=== PATIENT | male | born 1935 | race Hispanic/Latino ===

== ENCOUNTER 2018-04-24 10:05 | Emergency (ER) | payer MEDICARE, OTHER ==
[2018-04-24] MEDS: MECLIZINE 25 MG TABLET PO (11:04)
== END 2018-04-24 11:05 | disposition home or self-care (01) ==
LOC: M ED 10:05
DX: H81.10 Benign paroxysmal vertigo, unspecified ear (principal); I10 Essential (primary) hypertension; E78.5 Hyperlipidemia, unspecified; Z79.82 Long term (current) use of aspirin; Z79.899 Other long term (current) drug therapy
CPT/HCPCS: 99284

== ENCOUNTER 2020-12-28 18:02 | Emergency (ER) | payer MEDICARE, OTHER ==
[~2020-12-28] VITALS: Ht 175.3 cm; Wt 81.4 kg
[~2020-12-28 18:02] MED LIST: ASPI81TA52 PO; CYAN100049 PO; LOSA25TA14 PO; MECL1TAB31 PO; SIMV40TA20 PO
[2020-12-28] MEDS ORDERED: FLUORESCEIN OPHTH 1 MG STRIP OS ONE (19:40)
[2020-12-28] MEDS ORDERED: PROPARACAINE 0.5% OPHTH SOL 15ML OS ONE (19:40)
[2020-12-28] MEDS ORDERED: ERYTHROMYCIN OPHTH OINT OS ONE (20:35)
[2020-12-28] MEDS ORDERED: ERYT5OIN25 OS (20:35)
[2020-12-28 20:52] VITALS: BP 162/79
== END 2020-12-28 21:18 | disposition home or self-care (01) ==
LOC: M ED 18:02
DX: S05.02XA Injury of conjunctiva and corneal abrasion without foreign body, left eye, initial encounter (principal); X58.XXXA Exposure to other specified factors, initial encounter; Y92.017 Garden or yard in single-family (private) house as the place of occurrence of the external cause; Y93.H2 Activity, gardening and landscaping; Y99.9 Unspecified external cause status; Z79.82 Long term (current) use of aspirin; Z79.899 Other long term (current) drug therapy

== ENCOUNTER → 2021-01-08 | Outpatient (CLI) | payer MEDICARE, OTHER ==
[~2021-01-08] MED LIST changes: +ERYT5OIN25 OS
--- NOTE | 2021-01-08 17:43 | REP ---
INDICATION: LBP. History of colon carcinoma. Rule out stenosis. COMPARISON: None. TECHNIQUE: Sagittal and axial T1 and T2-weighted scans are acquired in the usual fashion with and without fat saturation. Sequences include spin echo, turbo spin-echo, and STIR imaging sequences. FINDINGS: There is straightening of the normal lumbar lordosis. Lumbar vertebral body heights are preserved. There are some reactive marrow changes on either side of the degenerated L4-5 disc. Cortical and medullary bone signal intensity are otherwise normal. The tip of the conus medullaris is normal in position and appearance at T12. There are multiple bilateral renal cysts including a cyst measuring approximately 8 cm incompletely imaged in the right kidney. No other extra renal abnormality is observed. There is a moderate amount of is centrally circumferential intraspinal epidural fat consistent with epidural lipomatosis. This is most pronounced dorsally at L2-3 L3-4 but the circumferentially at L4 and L5 and S1. Axial and sagittal images taken at L1-2 demonstrate minimal diffuse disc bulging. This indents the ventral margin of the thecal sac. No disc protrusion is seen. No spinal stenosis is seen. At L2-3, there is degenerative disc narrowing and decreased signal intensity. Diffuse disc bulging is seen. There is mild central canal stenosis due to diffuse disc bulging, minimal ligamentum flavum and facet hypertrophy, and epidural fat. The midline AP dimension of the thecal sac at L2-3 is 7 mm. No neural foraminal narrowing is seen. At L3-4, there is degenerative disc narrowing and desiccation. There is diffuse bulging of the disc margin. There is moderate central canal stenosis due to diffuse disc bulging in combination with nearly circumferential epidural fat. There is ligamentum flavum and facet hypertrophy as well. The AP diameter of the thecal sac at L3-4 in the midline is 4.7 mm. Foraminal disc bulging is observed bilaterally. There is mild left-sided neural foraminal narrowing due to this in combination with facet hypertrophy. At L4-5, there is a vacuum phenomena in the degenerated narrowed disc. Reactive marrow changes are seen on either side of the 4 5 disc. There is a broad-based right paracentral focal disc protrusion at L4-5 compressing the thecal sac. There is severe central canal stenosis due to this in combination with moderate ligamentum flavum and facet hypertrophy and developmentally short pedicles. The midline AP dimension of the thecal sac at L4-5 is 4 mm. There is mild bilateral neural foraminal narrowing at L4-5 due to facet hypertrophy and disc bulging. At L5-S1, there is osteoarthritic facet hypertrophy bilaterally and diffuse disc bulging. Mild bilateral neural foraminal narrowing is present due to facet hypertrophy and some degree of disc bulging period no central canal stenosis is seen. IMPRESSION: Multilevel degenerative disc disease. There is some severe central canal stenosis at L4-5 and moderate central canal stenosis at L3-4. Mild central canal stenosis is noted at L2-3. Thecal sac narrowing at these levels due to a combination of diffuse disc bulging, ligamentum flavum and facet hypertrophy, and epidural fat. A broad-based right paracentral focal disc protrusion is felt to be present at L4-5. Bilateral neural foraminal narrowing as above <Electronically signed by Janes Triana > 01/08/21 [id number]
== END ==
LOC: M PLARAD 14:41
PROVIDERS: ATTEND Orthopaedic Surgery
DX: M54.5 Low back pain (principal)

== ENCOUNTER → 2021-10-31 | Outpatient (CLI) | payer MEDICARE, OTHER ==
[~2021-10-31] MED LIST changes: +LOSA25TA13 PO; -LOSA25TA14 PO
== END ==
LOC: M RAD 09:37
PROVIDERS: ATTEND Internal Medicine Pulmonary Disease
DX: R91.8 Other nonspecific abnormal finding of lung field (principal); N28.1 Cyst of kidney, acquired; K76.89 Other specified diseases of liver

== ENCOUNTER → 2022-06-26 | Outpatient (CLI) | payer MEDICARE, OTHER ==
[2022-06-26 12:43] LABS: THYROID STIMULATING HORMONE 1.26 uIU/ML (0.358-3.740)
[2022-06-26 18:25] LABS: FOLATE 9.6 NG/ML
== END ==
LOC: M LAB 10:12
PROVIDERS: ATTEND Psychiatry & Neurology Neurology
DX: E53.8 Deficiency of other specified B group vitamins (principal); E03.9 Hypothyroidism, unspecified; R41.3 Other amnesia

== ENCOUNTER → 2022-07-21 | Outpatient (CLI) | payer MEDICARE, OTHER | LOC: M RAD 09:38 | PROVIDERS: ATTEND Psychiatry & Neurology Neurology | DX: S00.85XA Superficial foreign body of other part of head, initial encounter (principal) ==

== ENCOUNTER 2023-04-14 10:13 | Emergency (ER) | payer MEDICARE, OTHER ==
[~2023-04-14] VITALS: Ht 172.7 cm; Wt 80.8 kg
[2023-04-14] MEDS ORDERED: METF500T13 PO (10:22)
[2023-04-14] MEDS ORDERED: MEMA10TA19 PO (10:23)
[2023-04-14] MEDS ORDERED: ACETAMINOPHEN *IV* 1,000 MG in IV 1 EA IV ONE (11:00)
[2023-04-14] MEDS ORDERED: LIDOCAINE 5% (LIDODERM) PATCH TD ONE (11:00)
[2023-04-14 11:25] LABS: BASO # 0.1 10^3/uL (0.0-0.2); BASO % 0.7 % (0.0-1.0); EOS # 0.1 10^3/uL (0.0-0.5); EOS % 1.3 % (0.0-3.0); HEMOGLOBIN 13.6 g/dl (13.5-17.5); LYMPH # 1.2 10^3/uL (1.5-5.0); LYMPH % 16.1 % (24.0-44.0); MEAN CORPUSCULAR HEMOGLOBIN 32.2 pg (27.0-33.0); MEAN CORPUSCULAR VOLUME 94.8 fl (80.0-96.0); MONO # 0.6 10^3/uL (0.0-0.8); MONO % 7.5 % (2.0-8.0); NEUTROPHILS # 5.7 10^3/uL (1.5-8.5); NEUTROPHILS % 74.1 % (36.0-66.0); PLATELET COUNT, AUTOMATED 142 10^3/uL (150-450); RED BLOOD COUNT 4.22 10^6/uL (4.30-6.10); WHITE BLOOD COUNT 7.6 10^3/uL (4.0-10.0)
[2023-04-14] MEDS ORDERED: ISOVUE-370 76% 100ML VIAL As Ordered ONE (12:35)
[2023-04-14] MEDS ORDERED: ASPE4PAD TOP (13:59)
[2023-04-14] MEDS ORDERED: MEDR4PAK PO (13:59)
[2023-04-14] MEDS ORDERED: TRAM50TA2 PO (13:59)
[2023-04-14 14:10] VITALS: BP 150/70; TEMP 97.3; O2SAT 99
== END 2023-04-14 14:12 | disposition home or self-care (01) ==
LOC: M ED 10:13
DX: M51.17 Intervertebral disc disorders with radiculopathy, lumbosacral region (principal); M51.26 Other intervertebral disc displacement, lumbar region; M54.50 Low back pain, unspecified; I10 Essential (primary) hypertension; E78.5 Hyperlipidemia, unspecified; Z85.038 Personal history of other malignant neoplasm of large intestine; Z79.82 Long term (current) use of aspirin; Z79.811 Long term (current) use of aromatase inhibitors; Z79.4 Long term (current) use of insulin; Z79.899 Other long term (current) drug therapy
CPT/HCPCS: 72131; 74177; 80047; 85025; 96374; 99284; J0131; Q9967

== ENCOUNTER 2024-02-16 03:41 | Emergency (ER) | payer MEDICARE, OTHER ==
[~2024-02-16] VITALS: Ht 172.7 cm; Wt 86.6 kg
[~2024-02-16 03:41] MED LIST changes: +AMLO1TAB24 PO; +ASPE4PAD TOP; +ASPE4PAD2 TOP; +ASPI-615 PO; +CIME-49 PO; +ERGO500029 PO; +FLOM0.4C39 PO; +MECL-209 PO; -MECL1TAB31 PO; +MEDR4PAK PO; +MELO7.5T35 PO; +MEMA10TA PO; +METF500T13 PO; +ROSU40TA63 PO; +TIMO0.5S39 OU; +TRAM50TA2 PO; +XALA0.007 OU
[2024-02-16 07:32] VITALS: BP 152/74
[2024-02-16 07:33] VITALS: O2SAT 99
[2024-02-16 07:44] VITALS: TEMP 97.2
== END 2024-02-16 07:45 | disposition home or self-care (01) ==
LOC: M ED 03:41
DX: S46.811A Strain of other muscles, fascia and tendons at shoulder and upper arm level, right arm, initial encounter (principal); M50.30 Other cervical disc degeneration, unspecified cervical region; M25.78 Osteophyte, vertebrae; M19.011 Primary osteoarthritis, right shoulder; M47.892 Other spondylosis, cervical region; I10 Essential (primary) hypertension; J45.909 Unspecified asthma, uncomplicated; K21.9 Gastro-esophageal reflux disease without esophagitis; Z91.018 Allergy to other foods; Z79.82 Long term (current) use of aspirin; Z79.811 Long term (current) use of aromatase inhibitors; Z79.4 Long term (current) use of insulin; Z79.899 Other long term (current) drug therapy; Y92.9 Unspecified place or not applicable; Y93.9 Activity, unspecified; Y99.9 Unspecified external cause status

== ENCOUNTER 2024-07-06 17:55 | Emergency (ER) | payer MEDICARE, OTHER ==
[~2024-07-06] VITALS: Ht 177.8 cm; Wt 85.0 kg
[~2024-07-06 17:55] MED LIST changes: -ROSU40TA63 PO; +ROSU40TA81 PO
[2024-07-06 18:01] VITALS: TEMP 97.5
[2024-07-06] MEDS: LIDOCAINE VISCOUS 2% SOLN 15ML UDC PO ONE (18:30)
[2024-07-06] MEDS: SUCRALFATE SUSP 1GM/10ML UD PO ONE (20:22)
[2024-07-06] MEDS: MAALOX 30 ML SUSP *UDC PO ONE (20:22)
[2024-07-06 23:45] VITALS: BP 154/72; O2SAT 99
== END 2024-07-07 | disposition home or self-care (01) ==
LOC: M ED 17:55
DX: J02.9 Acute pharyngitis, unspecified (principal); E11.9 Type 2 diabetes mellitus without complications; I10 Essential (primary) hypertension; E78.5 Hyperlipidemia, unspecified; F03.90 Unspecified dementia, unspecified severity, without behavioral disturbance, psychotic disturbance, mood disturbance, and anxiety; Z91.09 Other allergy status, other than to drugs and biological substances; Z79.82 Long term (current) use of aspirin; Z79.4 Long term (current) use of insulin; Z79.899 Other long term (current) drug therapy

== ENCOUNTER 2024-10-08 09:15 | Emergency (ER) | payer MEDICARE, OTHER ==
[~2024-10-08] VITALS: Ht 177.8 cm; Wt 85.0 kg
[2024-10-08 10:01] LABS: BASO # 0.1 10^3/uL (0.0-0.2); BASO % 0.4 % (0.0-1.0); EOS # 0.1 10^3/uL (0.0-0.5); EOS % 0.9 % (0.0-3.0); HEMATOCRIT 46.4 % (42.0-52.0); HEMOGLOBIN 15.4 g/dl (13.5-17.5); LYMPH # 1.5 10^3/uL (1.5-5.0); LYMPH % 13.3 % (24.0-44.0); MEAN CORPUSCULAR HEMOGLOBIN 30.6 pg (27.0-33.0); MEAN CORPUSCULAR HGB CONC 33.2 g/dl (32.0-36.5); MEAN CORPUSCULAR VOLUME 92.2 fl (80.0-96.0); MONO # 0.8 10^3/uL (0.0-0.8); MONO % 6.8 % (2.0-8.0); NEUTROPHILS # 8.9 10^3/uL (1.5-8.5); NEUTROPHILS % 78.2 % (36.0-66.0); PLATELET COUNT, AUTOMATED 192 10^3/uL (150-450); RED BLOOD COUNT 5.03 10^6/uL (4.30-6.10); WHITE BLOOD COUNT 11.4 10^3/uL (4.0-10.0)
[2024-10-08 10:13] LABS: KETONE, URINE AUTO RFX NEGATIVE (NEGATIVE); LEUKOCYTE ESTERASE UR AUTO RFX NEGATIVE (NEGATIVE); MUCUS, URINE RFX SMALL (NEGATIVE); NITRITE, URINE AUTO RFX NEGATIVE (NEGATIVE); RBC, URINE AUTO RFX 2 /HPF (0-3); SQUAM EPITHELIAL CELL UR AURFX 0 /HPF (0-6); WBC, URINE AUTO RFX 3 /HPF (0-3)
[2024-10-08 10:26] LABS: CK-MB VALUE MASS 1.3 NG/ML (<3.6)
[2024-10-08 10:29] LABS: ALBUMIN 3.9 G/DL (3.2-5.2); BILIRUBIN,DIRECT 0.2 MG/DL (<0.4); BILIRUBIN,TOTAL 0.5 MG/DL (0.3-1.2); CALCIUM LEVEL 9.9 MG/DL (8.3-10.6); CREATININE FOR GFR 1.22 MG/DL (0.70-1.30); GLOMERULAR FILTRATION RATE 59.7 (>35); MB/CK RELATIVE INDEX 1.83 (< OR =4); TOTAL PROTEIN 7.3 G/DL (5.7-8.2)
[2024-10-08] MEDS ORDERED: ISOVUE-370 76% 100ML VIAL As Ordered ONE (10:30)
[2024-10-08] MEDS: LIDOCAINE 2% 5ML JELLY UROJET TOP ONE (11:15)
[2024-10-08] MEDS: NS (Normal Saline) 0.9% 1,000 ML IV ONE (11:34)
[2024-10-08 12:28] LABS: CK-MB VALUE MASS < 1.0 NG/ML (<3.6)
[2024-10-08 12:40] LABS: CPK CREATINE PHOSPHOKINASE 72 U/L (46-171); MB/CK RELATIVE INDEX 1.38 (< OR =4)
[2024-10-08] MEDS ORDERED: AMLO1TAB24 PO (14:59)
[2024-10-08] MEDS ORDERED: OMEP-173 PO (14:59)
[2024-10-08] MEDS ORDERED: PANT40TA29 PO (14:59)
[2024-10-08] MEDS ORDERED: DULO1CAP4 PO (14:59)
[2024-10-08] MEDS ORDERED: CETI-24 PO (14:59)
[2024-10-08] MEDS ORDERED: SITA50TAB PO (14:59)
[2024-10-08] MEDS ORDERED: HOME MED LIST COMPLETE! XX SCH (15:00)
[2024-10-08] MEDS ORDERED: MAALOX 30 ML SUSP *UDC PO PRN (16:00)
[2024-10-08] MEDS ORDERED: INSULIN LISPRO (NovoLOG) PER UNIT SC SCH (16:05)
[2024-10-08] MEDS ORDERED: DEXTROSE 50% 50ML SYRINGE IV PRN (16:05)
[2024-10-08] MEDS ORDERED: GLUCOSE 4 GM CHEW PO PRN (16:05)
[2024-10-08] MEDS ORDERED: GLUCAGON INJ 1MG VIAL SC PRN (16:05)
[2024-10-08] MEDS ORDERED: PROCHLORPERAZINE 10MG 2ML VIAL IM PRN (16:10)
[2024-10-08] MEDS: METOCLOPRAMIDE INJ 10MG/2ML VIAL IV ONE (16:49)
[2024-10-08] MEDS: INSULIN LISPRO (NovoLOG) PER UNIT SC SCH (18:00)
[2024-10-08] MEDS: PANTOPRAZOLE 40MG VIAL IV SCH (22:10)
[2024-10-09 08:30] LABS: HEMATOCRIT 43.6 % (42.0-52.0); HEMOGLOBIN 14.2 g/dl (13.5-17.5); MEAN CORPUSCULAR HEMOGLOBIN 30.4 pg (27.0-33.0); MEAN CORPUSCULAR HGB CONC 32.6 g/dl (32.0-36.5); MEAN CORPUSCULAR VOLUME 93.4 fl (80.0-96.0); PLATELET COUNT, AUTOMATED 153 10^3/uL (150-450); RED BLOOD COUNT 4.67 10^6/uL (4.30-6.10); WHITE BLOOD COUNT 6.7 10^3/uL (4.0-10.0)
[2024-10-09 08:53] LABS: ALBUMIN 3.6 G/DL (3.2-5.2); ALKALINE PHOSPHATASE 59 U/L (40-129); ALT/SGPT 15 U/L (7.0-40); AST/SGOT 15 U/L (<34); BILIRUBIN,TOTAL 0.5 MG/DL (0.3-1.2); BLOOD UREA NITROGEN 44 MG/DL (9-23); CALCIUM LEVEL 9.2 MG/DL (8.3-10.6); CARBON DIOXIDE LEVEL 26 MMOL/L (20-31); CHLORIDE LEVEL 109 MMOL/L (98-107); CREATININE FOR GFR 1.01 MG/DL (0.70-1.30); GLOMERULAR FILTRATION RATE > 60.0 (>35); GLUCOSE, FASTING 140 MG/DL (74-106); POTASSIUM SERUM 4.6 MMOL/L (3.5-5.1); SODIUM LEVEL 145 MMOL/L (136-145); TOTAL PROTEIN 6.9 G/DL (5.7-8.2)
[2024-10-09] MEDS: ENOXAPARIN 40MG/0.4ML SYRINGE (J1650 PER 10MG) SC SCH (09:00)
[2024-10-09] MEDS ORDERED: ENOXAPARIN 40MG/0.4ML SYRINGE (J1650 PER 10MG) SC SCH (09:00)
[2024-10-09] MEDS ORDERED: REGL5TAB2 PO (14:40)
[2024-10-09] MEDS ORDERED: MYLA41.6 PO (14:44)
[2024-10-09 15:19] VITALS: BP 128/70; TEMP 98.7; O2SAT 68
== END 2024-10-09 15:30 | disposition home or self-care (01) ==
LOC: M ED 09:15 → EDBD 09:15 → M ED INP 09:16
PROVIDERS: ADMIT Student in an Organized Health Care Education/Training Program; ATTEND Student in an Organized Health Care Education/Training Program
DX: R10.9 Unspecified abdominal pain (principal); R11.10 Vomiting, unspecified; R19.7 Diarrhea, unspecified; R06.6 Hiccough; N17.9 Acute kidney failure, unspecified; E11.65 Type 2 diabetes mellitus with hyperglycemia; G30.9 Alzheimer's disease, unspecified; I10 Essential (primary) hypertension; E78.5 Hyperlipidemia, unspecified; N40.0 Benign prostatic hyperplasia without lower urinary tract symptoms; K21.9 Gastro-esophageal reflux disease without esophagitis; Z85.038 Personal history of other malignant neoplasm of large intestine; Z87.442 Personal history of urinary calculi; Z79.84 Long term (current) use of oral hypoglycemic drugs; Z79.82 Long term (current) use of aspirin; Z79.899 Other long term (current) drug therapy; Z91.018 Allergy to other foods
CPT/HCPCS: 36415; 71045; 71275; 74177; 80047; 80048; 80053; 80076; 81001; 82150; 82550; 82553; 83605; 83690; 84484; 85025; 85027; 87040; 93005; 93041; 96372; 96374; 96375; 99285; G0378; J1650; J2470; J2765; Q9967

== ENCOUNTER 2025-05-21 13:52 | Emergency (ER) | payer MEDICARE, OTHER ==
[~2025-05-21] VITALS: Ht 177.8 cm; Wt 78.0 kg
[~2025-05-21 13:52] MED LIST changes: +CETI-24 PO; +DULO1CAP4 PO; -FLOM0.4C39 PO; +MYLA41.6 PO; +OMEP-173 PO; +PANT40TA29 PO; +REGL5TAB2 PO; +SITA50TAB PO; +TAMS-18 PO; -TIMO0.5S39 OU; +TIMO5DRO9 OU
[2025-05-21 14:13] VITALS: TEMP 96.9
[2025-05-21 14:53] LABS: BASO # 0.0 10^3/uL (0.0-0.2); BASO % 0.6 % (0.0-1.0); EOS # 0.1 10^3/uL (0.0-0.5); EOS % 1.5 % (0.0-3.0); LYMPH # 0.9 10^3/uL (1.5-5.0); LYMPH % 13.2 % (24.0-44.0); MONO # 0.5 10^3/uL (0.0-0.8); MONO % 7.9 % (2.0-8.0); NEUTROPHILS # 5.1 10^3/uL (1.5-8.5); NEUTROPHILS % 76.5 % (36.0-66.0); PLATELET COUNT, AUTOMATED 126 10^3/uL (150-450)
[2025-05-21 15:10] LABS: INR 1.1
[2025-05-21 15:14] LABS: ALT/SGPT 21.0 U/L (7.0-40); AST/SGOT 18.0 U/L (<34); CALCIUM LEVEL 8.9 MG/DL (8.3-10.6); CARBON DIOXIDE LEVEL 30.0 MMOL/L (20-31); CHLORIDE LEVEL 104.0 MMOL/L (98-107); CK-MB VALUE MASS 1.6 NG/ML (<3.6); CPK CREATINE PHOSPHOKINASE 49.0 U/L (46-171); CREATININE FOR GFR 1.47 MG/DL (0.70-1.30); GLOMERULAR FILTRATION RATE 45.3 (>35); MB/CK RELATIVE INDEX 3.26 (< OR =4); POTASSIUM SERUM 3.9 MMOL/L (3.5-5.1); SODIUM LEVEL 142.0 MMOL/L (136-145)
[2025-05-21 15:17] LABS: FREE T4 1.16 NG/DL (0.89-1.76)
[2025-05-21 16:36] LABS: KETONE, URINE AUTO RFX NEGATIVE (NEGATIVE); LEUKOCYTE ESTERASE UR AUTO RFX NEGATIVE (NEGATIVE); NITRITE, URINE AUTO RFX NEGATIVE (NEGATIVE); RBC, URINE AUTO RFX 2 /HPF (0-3); SQUAM EPITHELIAL CELL UR AURFX 0 /HPF (0-6); WBC, URINE AUTO RFX 1 /HPF (0-3)
[2025-05-21 16:43] LABS: CK-MB VALUE MASS 1.6 NG/ML (<3.6)
[2025-05-21 16:51] LABS: CPK CREATINE PHOSPHOKINASE 49.0 U/L (46-171); MB/CK RELATIVE INDEX 3.26 (< OR =4)
[2025-05-21 18:00] VITALS: BP 140/72; O2SAT 99
== END 2025-05-21 18:07 | disposition home or self-care (01) ==
LOC: EDBD 13:52 → M ED 13:52
DX: R53.1 Weakness (principal); W19.XXXA Unspecified fall, initial encounter; M47.896 Other spondylosis, lumbar region; M50.322 Other cervical disc degeneration at C5-C6 level; I87.8 Other specified disorders of veins; E11.9 Type 2 diabetes mellitus without complications; K21.9 Gastro-esophageal reflux disease without esophagitis; I10 Essential (primary) hypertension; E78.5 Hyperlipidemia, unspecified; G30.9 Alzheimer's disease, unspecified; C18.9 Malignant neoplasm of colon, unspecified; Z91.048 Other nonmedicinal substance allergy status; Z79.82 Long term (current) use of aspirin; Z79.4 Long term (current) use of insulin; Z79.899 Other long term (current) drug therapy; Y92.9 Unspecified place or not applicable; Y93.89 Activity, other specified; Y99.9 Unspecified external cause status

== ENCOUNTER 2025-07-07 11:29 | Inpatient (IN) | payer MEDICARE, OTHER ==
[~2025-07-07] VITALS: Ht 175.3 cm; Wt 80.7 kg
[2025-07-07 12:28] LABS: BASO # 0.1 10^3/uL (0.0-0.2); BASO % 0.6 % (0.0-1.0); EOS # 0.3 10^3/uL (0.0-0.5); EOS % 3.3 % (0.0-3.0); LYMPH # 1.4 10^3/uL (1.5-5.0); LYMPH % 17.3 % (24.0-44.0); MONO # 0.6 10^3/uL (0.0-0.8); MONO % 7.5 % (2.0-8.0); NEUTROPHILS # 5.7 10^3/uL (1.5-8.5); NEUTROPHILS % 71.0 % (36.0-66.0); PLATELET COUNT, AUTOMATED 148 10^3/uL (150-450)
[2025-07-07 12:44] LABS: CK-MB VALUE MASS 1.5 NG/ML (<3.6)
[2025-07-07 12:46] LABS: ALT/SGPT 23.0 U/L (7.0-40); AST/SGOT 26.0 U/L (<34); CALCIUM LEVEL 9.2 MG/DL (8.3-10.6); CARBON DIOXIDE LEVEL 30.0 MMOL/L (20-31); CHLORIDE LEVEL 103.0 MMOL/L (98-107); CREATININE FOR GFR 1.6 MG/DL (0.70-1.30); GLOMERULAR FILTRATION RATE 40.9 (>35); POTASSIUM SERUM 4.4 MMOL/L (3.5-5.1); SODIUM LEVEL 142.0 MMOL/L (136-145)
[2025-07-07 12:49] LABS: CPK CREATINE PHOSPHOKINASE 80.0 U/L (46-171); MB/CK RELATIVE INDEX 1.87 (< OR =4)
[2025-07-07 15:25] LABS: KETONE, URINE AUTO RFX NEGATIVE (NEGATIVE); LEUKOCYTE ESTERASE UR AUTO RFX NEGATIVE (NEGATIVE); MUCUS, URINE RFX SMALL (NEGATIVE); NITRITE, URINE AUTO RFX NEGATIVE (NEGATIVE); RBC, URINE AUTO RFX 1 /HPF (0-3); SQUAM EPITHELIAL CELL UR AURFX 0 /HPF (0-6); WBC, URINE AUTO RFX 3 /HPF (0-3)
[2025-07-07 15:51] LABS: FREE T4 1.15 NG/DL (0.89-1.76)
[2025-07-07 15:52] LABS: CPK CREATINE PHOSPHOKINASE 73.0 U/L (46-171)
[2025-07-07] MEDS ORDERED: GLUCOSE 4 GM CHEW PO PRN (19:35)
[2025-07-07] MEDS ORDERED: GLUCAGON INJ 1 MG VIAL SC PRN (19:35)
[2025-07-07] MEDS ORDERED: HOME MED LIST COMPLETE! XX SCH (19:35)
[2025-07-07] MEDS ORDERED: DEXTROSE 50% 50 ML SYRINGE IV PRN (19:35)
[2025-07-07 20:20] VITALS: BP 152/71; TEMP 98.9; O2SAT 100
[2025-07-07] MEDS: traZODone 50 MG TAB PO PRN (21:44)
[2025-07-08 05:48] LABS: PLATELET COUNT, AUTOMATED 140 10^3/uL (150-450)
[2025-07-08 06:14] LABS: ALT/SGPT 19.0 U/L (7.0-40); AST/SGOT 21.0 U/L (<34); CALCIUM LEVEL 8.8 MG/DL (8.3-10.6); CARBON DIOXIDE LEVEL 28.0 MMOL/L (20-31); CHLORIDE LEVEL 104.0 MMOL/L (98-107); CREATININE FOR GFR 1.51 MG/DL (0.70-1.30); GLOMERULAR FILTRATION RATE 43.9 (>35); MAGNESIUM LEVEL 1.8 MG/DL (1.8-2.4); POTASSIUM SERUM 3.5 MMOL/L (3.5-5.1); SODIUM LEVEL 143.0 MMOL/L (136-145)
[2025-07-08 06:16] VITALS: BP 122/62; TEMP 97.8; O2SAT 97
[2025-07-08] MEDS: ENOXAPARIN 40 MG/0.4 ML SYRINGE (J1650 PER 10MG) SC SCH (09:09)
[2025-07-08] MEDS: INSULIN LISPRO (NovoLOG) PER UNIT SC SCH (09:09)
[2025-07-08] MEDS: ASPIRIN 81 MG ENTERIC TABLET PO SCH (09:09)
[2025-07-08] MEDS: metFORMIN 500 MG TAB PO SCH (09:10)
[2025-07-08] MEDS: LOSARTAN 25 MG TAB PO SCH (09:12)
[2025-07-08] MEDS: CYANOCOBALAMIN 500 MCG TAB PO SCH (09:13)
[2025-07-08 11:40] VITALS: BP 131/76; TEMP 98.3; O2SAT 95
[2025-07-08 21:06] VITALS: BP 113/58; TEMP 98.4; O2SAT 97
[2025-07-09 05:25] VITALS: BP 114/59; TEMP 99.1; O2SAT 96
[2025-07-09 20:50] VITALS: BP 103/56; TEMP 98.7; O2SAT 97
[2025-07-10 05:44] VITALS: BP 115/58; TEMP 98.6; O2SAT 97
[2025-07-10 06:35] LABS: PLATELET COUNT, AUTOMATED 146 10^3/uL (150-450)
[2025-07-10 11:55] VITALS: BP 123/66; TEMP 98.8; O2SAT 98
[2025-07-10] MEDS: ACETAMINOPHEN 325 MG TAB PO PRN (13:46)
[2025-07-10 20:45] VITALS: TEMP 98.1
[2025-07-11 04:00] VITALS: BP 121/63; TEMP 98.2; O2SAT 95
[2025-07-12 05:12] VITALS: BP 103/51; TEMP 98.4; O2SAT 98
[2025-07-13 05:30] VITALS: BP 105/54; TEMP 98.1; O2SAT 96
[2025-07-13 06:35] LABS: PLATELET COUNT, AUTOMATED 142 10^3/uL (150-450)
[2025-07-13] MEDS ORDERED: POLYVINYL ALCOHOL OPHTH SOLN 15ML (LIQUITEARS) OU PRN (12:30)
[2025-07-14 03:10] VITALS: BP 120/58; TEMP 98.4; O2SAT 98
[2025-07-14] MEDS: CIPROFLOXACIN 0.3% OPHTH SOLN 2.5 ML OU SCH (18:42)
[2025-07-14] MEDS: RAMELTEON 8 MG TAB PO SCH (20:33)
[2025-07-15 04:00] VITALS: BP 102/59; TEMP 98; O2SAT 97
[2025-07-16 05:53] VITALS: BP 119/60; TEMP 98.2; O2SAT 98
[2025-07-16 06:15] LABS: PLATELET COUNT, AUTOMATED 142 10^3/uL (150-450)
[2025-07-17] MEDS: MOM 30 ML SUSPENSION UDC PO PRN (00:26)
[2025-07-17] MEDS: OLANZapine INTRAMUSCULAR 10MG VIAL IM ONE (03:30)
[2025-07-17] MEDS ORDERED: OLANZapine INTRAMUSCULAR 10MG VIAL IM PRN (18:50)
[2025-07-18 03:16] VITALS: BP 108/81; TEMP 98; O2SAT 97
[2025-07-18] MEDS: PANTOPRAZOLE 40MG TAB PO PRN (14:05)
[2025-07-19 05:33] VITALS: BP 108/53; TEMP 97.1; O2SAT 97
[2025-07-19 06:10] LABS: PLATELET COUNT, AUTOMATED 145 10^3/uL (150-450)
[2025-07-20 03:31] VITALS: BP 108/87; TEMP 98.1; O2SAT 96
[2025-07-20] MEDS ORDERED: PILL CUTTER 1 EACH XX PRN (17:50)
[2025-07-21 04:00] VITALS: BP 134/62; TEMP 97.9; O2SAT 96
[2025-07-22 04:11] VITALS: BP 122/63; TEMP 98.1; O2SAT 98
[2025-07-23 06:27] VITALS: BP 116/55; TEMP 98.4; O2SAT 99
[2025-07-23] MEDS: CEPACOL LOZENGE PO PRN (17:58)
[2025-07-23] MEDS: SODIUM CHLORIDE NASAL 0.65% SPRAY BTL (OCEAN) PRN (18:12)
[2025-07-24 05:28] VITALS: BP 130/59; TEMP 98.3; O2SAT 98
[2025-07-25 04:56] VITALS: BP 124/63; TEMP 97.9; O2SAT 98
[2025-07-25 12:00] VITALS: BP 160/72; TEMP 97.8; O2SAT 100
[2025-07-26 06:21] VITALS: BP 129/63; TEMP 97.3; O2SAT 100
[2025-07-27 06:36] VITALS: BP 133/65; TEMP 98.1; O2SAT 98
[2025-07-28 03:07] VITALS: BP 131/63; TEMP 98.9; O2SAT 98
[2025-07-29 05:23] VITALS: BP 110/60; TEMP 98; O2SAT 99
[2025-07-29 15:58] LABS: ESTIMATED AVERAGE GLUCOSE 157.0 MG/DL (60-110)
[2025-07-29] MEDS: MEMANTINE 5 MG TABLET PO SCH (20:37)
[2025-07-30 06:23] VITALS: BP 92/48; TEMP 98.1; O2SAT 92
[2025-07-30] MEDS: ROSUVASTATIN 10 MG TAB PO SCH (08:50)
[2025-07-31 05:16] VITALS: BP 119/60; TEMP 98.5; O2SAT 99
[2025-08-01 06:20] VITALS: BP 124/63; TEMP 98.3; O2SAT 99
[2025-08-02 04:15] VITALS: BP 112/53; TEMP 98; O2SAT 100
[2025-08-03 07:02] VITALS: BP 114/56; TEMP 97.2; O2SAT 98
[2025-08-04 01:23] VITALS: BP 115/63; TEMP 98.1; O2SAT 99
[2025-08-04 05:05] VITALS: BP 114/64; TEMP 98; O2SAT 100
[2025-08-04 08:38] VITALS: BP 134/62
[2025-08-04] MEDS ORDERED: TRAZ-252 PO (11:00)
== END 2025-08-04 13:57 | disposition home health service (06) | DRG 57 ==
LOC: M ED 11:29 → EDBD 11:29 → M ED INP 11:30 → M MSPAV 20:10 → OBSVTOIN 07-26 14:28
PROVIDERS: ADMIT Internal Medicine; ATTEND Student in an Organized Health Care Education/Training Program
DX: G30.9 Alzheimer's disease, unspecified (principal); F02.80 Dementia in other diseases classified elsewhere, unspecified severity, without behavioral disturbance, psychotic disturbance, mood disturbance, and anxiety; E11.22 Type 2 diabetes mellitus with diabetic chronic kidney disease; E11.649 Type 2 diabetes mellitus with hypoglycemia without coma; E53.8 Deficiency of other specified B group vitamins; I12.9 Hypertensive chronic kidney disease with stage 1 through stage 4 chronic kidney disease, or unspecified chronic kidney disease; R29.6 Repeated falls; N40.0 Benign prostatic hyperplasia without lower urinary tract symptoms; N18.9 Chronic kidney disease, unspecified; Z79.82 Long term (current) use of aspirin; Z79.84 Long term (current) use of oral hypoglycemic drugs; Z79.899 Other long term (current) drug therapy; Z91.018 Allergy to other foods; E78.5 Hyperlipidemia, unspecified; F39 Unspecified mood [affective] disorder; Z74.01 Bed confinement status